=== PATIENT | male | born 1930 | race Hispanic/Latino ===

== ENCOUNTER → 2018-09-26 | Outpatient (CLI) | payer MEDICARE | END | disposition home or self-care (01) | LOC: RAH 08:56 | PROVIDERS: ATTEND Internal Medicine | DX: J43.9 Emphysema, unspecified (principal); I70.0 Atherosclerosis of aorta; R06.6 Hiccough; R63.4 Abnormal weight loss; Z95.0 Presence of cardiac pacemaker | CPT/HCPCS: 71250; 74176 ==